=== PATIENT | male | born 1990 | race Caucasian/White ===

== ENCOUNTER 2018-01-27 15:20 | Outpatient (CLI) | payer OTHER ==
--- NOTE | 2018-01-27 16:29 | ULT ---
BILATERAL SCROTAL ULTRASOUND INCLUDING COLOR AND SPECTRAL DOPPLER IMAGING: HISTORY: A 27-year-old male with right testicular pain. The patient has felt a lump for several weeks with pa in. FINDINGS: The right testis is enlarged, measuring 4.8 x 4.4 x 2.8 cm, and contains a solid intratesticular mass , measuring 4.5 x 2.5 x 2.6 cm. The left testis measures 4.5 x 3 x 2.6 cm. There is a 0.3 x 0.4 cm left epididymal cyst. No hydrocele. Vascular duplex with color and spectral Doppler imaging demonstrates arterial inflow and venous outfl ow to both testes. No evidence for testicular torsion. There is definite hypervascularity within th e solid right intratesticular mass. IMPRESSION: 1. Large, solid, hypervascular, right, intratesticular mass, evidence for neoplasm. 2. Tiny left epididymal cyst. No evidence for torsion. Findings were discussed with Mariana in Dr. Abdi's office at 4:15 p.m. CODE CR POS: [id number]
== END 2018-01-27 15:21 | disposition home or self-care (01) ==
LOC: BICULT 15:20
PROVIDERS: ATTEND Urology
DX: N50.9 Disorder of male genital organs, unspecified (principal); C62.91 Malignant neoplasm of right testis, unspecified whether descended or undescended; N50.3 Cyst of epididymis
CPT/HCPCS: 76870; 93976